=== PATIENT | male | born 1960 | race Caucasian/White ===

== ENCOUNTER 2020-12-31 08:39 | Emergency (ER) | payer OTHER ==
[2020-12-31 08:53] VITALS: BP 167/111; PULSE 86
[2020-12-31] MEDS ORDERED: Sodium Chloride 0.9% 10 ML Syringe FLUSH PRN (08:58)
--- NOTE | 2020-12-31 09:50 | CT ---
Head CT Technique: Multiple axial sections through the brain were obtained. Reconstructed coronal and axial images were obtained. Intravenous contrast was not utilized. Comparison: Prior head CT study of 11/17/16. Findings: Ventricles along with basal cisterns and sulci over the convexities are within normal limits for the patient's age. No abnormal parenchymal densities are seen. No evidence of intracranial hemorrhage. No midline shift or mass-effect is seen. Mild atherosclerotic calcification is seen within the carotid siphon and vertebral vessel on the right side. Visualized mastoid sinuses and paranasal sinuses show nothing acute. No acute calvarial abnormality is appreciated. Impression: 1. Minimal senescent change as noted above. 2. Nothing acute is appreciated on noncontrast CT study of the brain. Note: Consider brain MRI to further evaluate the patient's left-sided facial numbness. Diagnostic code #2
--- NOTE | 2020-12-31 09:57 | EDM.PDOC ---
ED HPI GENERAL MEDICAL PROBLEM - General Chief Complaint: Neuro Symptoms/Deficits Stated Complaint: FACIAL NUMBNESS AND SOB Time Seen by Provider: 12/31/20 08:50 Source of Information: Reports: Patient History Limitations: Reports: No Limitations - History of Present Illness INITIAL COMMENTS - FREE TEXT/NARRATIVE: The patient presents for left sided lip numbness and tongue numbness. This started yesterday after [facility]. He has some shortness of breath also. He has no chest pain or headache. He has some numbness in both arms at times. This has been going on for a few weeks and he says there is something going on in his neck. His chiropractor is going to scan his neck. He moves his neck a certain way and the numbness goes away. He has no troubles speaking. He has no fever, chills, cough, congestion, runny nose, chest pain, abdominal pain, nausea or vomiting. He has a history of coronary artery stents and he is on aspirin and plavix. He is also on something for blood pressure and high cholesterol. Onset: Gradual Duration: Day(s): (Yesterday) Location: Reports: Face Severity: Moderate Improves with: Reports: None Worsens with: Reports: None Associated Symptoms: Reports: Shortness of Breath. Denies: Chest Pain, Cough, Fever/Chills, Headaches, Nausea/Vomiting - Related Data Allergies Allergy/AdvReac Type Severity Reaction Status Date / Time No Known Allergies Allergy Verified 12/31/20 08:53 Home Meds: Home Meds Aspirin [Halfprin] 81 mg PO DAILY 11/17/16 [History] Ascorbic Acid [Vitamin C] 0 mg PO DAILY 12/31/20 [History] Clopidogrel [Plavix] 75 mg PO DAILY 12/31/20 [History] Rosuvastatin [Crestor] 20 mg PO DAILY 12/31/20 [History] lisinopriL [Lisinopril] 20 mg PO DAILY 12/31/20 [History] Past Medical History HEENT History: Reports: Impaired Vision Other HEENT History: wears eyeglasses. Cardiovascular History: Reports: Stents - Infectious Disease History Infectious Disease History: Reports: Chicken Pox - Past Surgical History HEENT Surgical History: Reports: Tonsillectomy Social & Family History - Caffeine Use Caffeine Use: Reports: Coffee ED ROS GENERAL - Review of Systems Review Of Systems: See Below Constitutional: Reports: No Symptoms HEENT: Reports: Other (Left sided facial numbness) Respiratory: Reports: No Symptoms Cardiovascular: Reports: No Symptoms Endocrine: Reports: No Symptoms GI/Abdominal: Reports: No Symptoms : Reports: No Symptoms Musculoskeletal: Reports: No Symptoms ED EXAM, NEURO - Physical Exam Exam: See Below Exam Limited By: No Limitations General Appearance: Alert, No Apparent Distress Eye Exam: Bilateral Eye: EOMI Ears: Normal External Exam Nose: Normal Inspection Head Exam: Atraumatic, Normocephalic Neck: Normal Inspection Respiratory/Chest: No Respiratory Distress, Lungs Clear, Normal Breath Sounds Cardiovascular: Regular Rate, Rhythm, No Edema, No Murmur GI/Abdominal: Soft, Non-Tender, No Organomegaly, No Mass Neurological: Alert, Oriented x 3, Other (equal strength. No facial weakness. Some decreased sensation to the left side of his face. No numbness or weakness to his arms or legs.) #1 Interpretation EKG Date: 12/31/20 Time: 09:05 Rhythm: NSR Rate (Beats/Min): 84 [place]: Normal P-Wave: Present QRS: Normal ST-T: Normal QT: Normal Course - Vital Signs Last Recorded V/S: Last Vital Signs Temp 98.2 F 12/31/20 08:47 Pulse 86 12/31/20 08:47 Resp 16 12/31/20 08:47 BP 167/111 H 12/31/20 08:47 Pulse Ox 98 12/31/20 08:47 - Orders/Labs/Meds Orders: Active Orders 24 hr Category Date Time Status Cardiac Monitoring [RC] . DIRECTED Care 12/31/20 08:58 Active EKG Documentation Completion [RC] STAT Care 12/31/20 09:00 Active Peripheral IV Care [RC] . DIRECTED Care 12/31/20 09:00 Active Sodium Chloride 0.9% [Saline Flush] Med 12/31/20 08:58 Active 10 ml FLUSH ASDIRECTED PRN Peripheral IV Insertion Adult [OM.PC] Stat Oth 12/31/20 08:58 Ordered Medication Orders Sodium Chloride (Sodium Chloride 0.9% 10 Ml Syringe) 10 ml FLUSH ASDIRECTED PRN PRN Reason: Keep Vein Open Last Admin: 12/31/20 09:05 Dose: 10 ml Documented by: JIMY Labs: Laboratory Tests 12/31/20 12/31/20 12/31/20 Range/Units 09:05 09:05 09:05 WBC 10.26 H (4.23-9.07) K/mm3 RBC 5.76 (4.63-6.08) M/mm3 Hgb 18.3 H (13.7-17.5) gm/dl Hct 53.6 H (40.1-51.0) % MCV 93.1 H (79.0-92.2) fl MCH 31.8 (25.7-32.2) pg MCHC 34.1 (32.2-35.5) g/dl RDW Std Deviation 44.3 H (35.1-43.9) fL Plt Count 211 (163-337) K/mm3 MPV 9.8 (9.4-12.3) fl Neut % (Auto) 69.9 H (34.0-67.9) % Lymph % (Auto) 15.2 L (21.8-53.1) % [place] % (Auto) 8.7 (5.3-12.2) % Eos % (Auto) 5.4 (0.8-7.0) Baso % (Auto) 0.6 (0.1-1.2) % Neut # (Auto) 7.18 H (1.78-5.38) K/mm3 Lymph # (Auto) 1.56 (1.32-3.57) K/mm3 [place] # (Auto) 0.89 H (0.30-0.82) K/mm3 Eos # (Auto) 0.55 H (0.04-0.54) K/mm3 Baso # (Auto) 0.06 (0.01-0.08) K/mm3 Manual Slide Review Normal smear PT 11.3 (9.7-12.0) SECONDS INR 1.06 APTT 33.3 H (21.7-31.4) SECONDS Sodium 138 (136-145) mEq/L Potassium 4.4 (3.5-5.1) mEq/L Chloride 101 (98-107) mEq/L Carbon Dioxide 25 (21-32) mEq/L Anion Gap 16.4 H (5-15) BUN 16 (7-18) mg/dL Creatinine 1.1 (0.7-1.3) mg/dL Est Cr Clr Drug Dosing 76.06 mL/min Estimated GFR (MDRD) > 60 (>60) mL/min BUN/Creatinine Ratio 14.5 (14-18) Glucose 94 (74-106) mg/dL Calcium 9.1 (8.5-10.1) mg/dL Total Bilirubin 0.6 (0.2-1.0) mg/dL AST 35 (15-37) U/L ALT 50 (16-63) U/L Alkaline Phosphatase 87 (46-116) U/L Troponin I < 0.017 (0.00-0.056) ng/mL Total Protein 8.0 (6.4-8.2) g/dl Albumin 3.9 (3.4-5.0) g/dl Globulin 4.1 gm/dL Albumin/Globulin Ratio 1.0 (1-2) Meds: Medications Generic Name Dose Route Start Last Admin Trade Name Freq PRN Reason Stop Dose Admin Sodium Chloride 10 ml 12/31/20 08:58 12/31/20 09:05 Sodium Chloride 0.9% 10 Ml Syringe FLUSH 10 ml ASDIRECTED PRN Administration Keep Vein Open - Re-Assessments/Exams Free Text/Narrative Re-Assessment/Exam: 12/31/20 09:58 I ordered an IV saline lock, EKG, CT of his head and labs. His EKG shows a NSR with no acute changes. His WBC was slightly elevated at 10.26. His PT was normal. His PTT was slightly elevated at 33.3. His anion gap was slightly elevated at 16.4. His troponin was negative. His CXR shows no acute changes. The CT of his head shows minimal senescent change. Nothing acute is appreciated on noncontrast CT study of the brain. 12/31/20 10:17 I have scheduled him for an MRI of his brain at 1:30 today. Departure - Departure Time of Disposition: 10:20 Disposition: Home, Self-Care 01 Condition: Good Clinical Impression: Numbness and tingling of left side of face - Discharge Information *PRESCRIPTION DRUG MONITORING PROGRAM REVIEWED*: Not Applicable *COPY OF PRESCRIPTION DRUG MONITORING REPORT IN PATIENT LALY: Not Applicable Referrals: PCP,None [Primary Care Provider] - Forms: ED Department Discharge Additional Instructions: Please return after 1pm today for an MRI scheduled for 1:30pm today. Keep taking your medications as prescribed. Please return if you are worse. Sepsis Event Note (ED) - Evaluation Sepsis Screening Result: No Definite Risk - Focused Exam Vital Signs: Vital Signs Temp Pulse Resp BP Pulse Ox 12/31/20 08:47 98.2 F 86 16 167/111 H 98 - My Orders Last 24 Hours: My Active Orders 12/31/20 08:58 Cardiac Monitoring [RC] . DIRECTED Sodium Chloride 0.9% [Saline Flush] 10 ml FLUSH ASDIRECTED PRN Peripheral IV Insertion Adult [OM.PC] Stat 12/31/20 09:00 EKG Documentation Completion [RC] STAT Peripheral IV Care [RC] . DIRECTED - Assessment/Plan Last 24 Hours: My Active Orders 12/31/20 08:58 Cardiac Monitoring [RC] . DIRECTED Sodium Chloride 0.9% [Saline Flush] 10 ml FLUSH ASDIRECTED PRN Peripheral IV Insertion Adult [OM.PC] Stat 12/31/20 09:00 EKG Documentation Completion [RC] STAT Peripheral IV Care [RC] . DIRECTED
--- NOTE | 2020-12-31 09:58 | CR ---
Chest: Portable view of the chest was obtained. Comparison: Prior chest x-ray of 11/17/16. Heart size is normal. Tortuous thoracic aorta is seen. Lungs are clear with no acute parenchymal change. Bony structure shows nothing acute. Impression: 1. Nothing acute is seen on portable chest x-ray Diagnostic code #2
== END 2020-12-31 10:28 | disposition home or self-care (01) ==
LOC: JD.ED 08:39
DX: R20.0 Anesthesia of skin (principal); Z79.82 Long term (current) use of aspirin; Z79.02 Long term (current) use of antithrombotics/antiplatelets; Z79.899 Other long term (current) drug therapy
CPT/HCPCS: 36415; 70450; 70450-26; 71045; 71045-26; 80053; 84484; 85025; 85610; 85730; 93005; 93010; 99284; 99285-25